=== PATIENT | male | born 1985 | race Caucasian/White ===

== ENCOUNTER 2017-09-06 09:02 | Emergency (ER) | payer OTHER ==
--- NOTE | 2017-09-06 09:16 | CPEKG ---
Heart Rate: 77 RR Interval: 779 QRSD Interval: 76 QT Interval: 360 QTC Interval: 408 QRS [place]: -12 T Wave [place]: 10 EKG Severity - ABNORMAL ECG - EKG Impression: ATRIAL FIBRILLATION, V-RATE 62-98 Electronically Signed By: Giovanna Mcgill 06-Sep-2017 15:09:20
[2017-09-06 10:05] LABS: PLATELET COUNT 227 10^3/uL (150-400)
--- NOTE | 2017-09-06 10:09 | EDPHY ---
H & P Stated Complaint: hx afib/sl lightheaded Time Seen by Provider: 09/06/17 09:15 HPI/ROS: CHIEF COMPLAINT: Atrial fibrillation HISTORY OF PRESENT ILLNESS: This is a 32-year-old male with history of paroxysmal atrial fibrillation, diagnosed approximately 10 years ago. His last episode of AFib was about 2 years ago. It is usually brought on by vomiting. Yesterday he was driving when he had the abrupt onset of a fluttering sensation in his chest. He describes it as "intense", causing him to fur puller and stop driving. This episode lasted less than a minute, after which he was aware of being in atrial fibrillation. He carries both propafenone and metoprolol. He took propafenone 150 mg at 10:00 a.m. yesterday and again at 6:30 p.m. yesterday. He took metoprolol, unknown dose, at 10:00 a.m. yesterday and again this morning. In the past he has cardioverted with these medications. Sometimes he returns to a sinus rhythm within hours but it has also taken as long as 6 days. He has never required electrical cardioversion and has not undergone an ablation procedure. He has not had chest pain or shortness of breath. He was feeling lightheaded yesterday, not today. He drinks 1 cup of coffee in the morning and plans to discontinue this habit. REVIEW OF SYSTEMS: A ten point review of systems was performed and is negative with the exception of the items mentioned in the HPI. Past medical history: 1. Paroxysmal atrial fibrillation 2. Cm AVM upper left back Past surgical history: Embolization procedures for the AVM Family history: Positive for hypertension in his father. Paternal great grandmother of a myocardial infarction. Social history: He lives outside of [facility] [place] with his . He works as an economics researcher. He does not use tobacco products or illicit drugs. He drinks alcohol on rare occasions. General Appearance: Alert. Vital signs reviewed. Eyes: Pupils equal and round, no conjunctival injection, no discharge. Anicteric. ENT, Mouth: Mucous membranes are moist, no oropharyngeal erythema or edema. Neck: No lymphadenopathy, supple. Respiratory: Lungs are clear to auscultation; no wheezes, rales, or rhonchi. Cardiovascular: Irregularly irregular; no murmur, rub, or gallop. Gastrointestinal: Abdomen is soft and nontender, no masses or organomegaly, bowel sounds normal. Skin: Warm and dry, no rashes on exposed skin, normal color. There is a birthmark overlying the posterior upper back on the left. There are 2 nontender nonmobile masses overlying this birthmark--AVM per his report. No pulsations. Back: Nontender to palpation over the thoracolumbar spine. No CVAT. Extremities: No lower extremity edema, no calf tenderness or swelling. Neurological: Alert and oriented. Moving all four extremities easily and equally. Psychiatric: Normal affect. - Personal History Current Tetanus Diphtheria and Acellular Pertussis (TDAP): Yes - Medical/Surgical History Hx Asthma: No Hx Chronic Respiratory Disease: No Hx Diabetes: No Hx Cardiac Disease: Yes Hx Renal Disease: No Hx Cirrhosis: No Hx Alcoholism: No Hx HIV/AIDS: No Hx Splenectomy or Spleen Trauma: No Other PMH: afib Constitutional: Initial Vital Signs Temperature (C) 36.9 C 09/06/17 09:04 Heart Rate 84 09/06/17 09:04 Respiratory Rate 18 09/06/17 09:04 Blood Pressure 110/76 09/06/17 09:04 O2 Sat (%) 97 09/06/17 09:04 O2 Delivery Mode Room Air Allergies/Adverse Reactions: No Known Allergies Allergy (Unverified 09/06/17 09:03) Home Medications: Medication Instructions Recorded Metoprolol Succinate 09/06/17 Metoprolol Tartrate 25 mg PO BID #60 tablet 09/06/17 Propafenone HCl 09/06/17 Medical Decision Making ED Course/Re-evaluation: 32-year-old male with known history of paroxysmal atrial fibrillation who presents in atrial fibrillation, rate controlled. I reviewed his blood work which includes CBC, chemistries, and troponin. Blood work is normal with the exception of an elevation in his blood glucose. He is asymptomatic at the time of my evaluation. I spoke with the on-call telecommunications equipment installer, Dr. Chavez Wise. The option of cardioversion was offered to the patient with the alternative being to continue his metoprolol and await chemical cardioversion. It is recommended that he take a daily aspirin. In discussion with the patient, it is decided that he will continue with metoprolol tartrate 25 mg orally twice daily. A prescription was written for this medication. Danger signs that should prompt him to return to the emergency department were reviewed with the patient and his . He is given contact numbers for [facility]. If all goes well he will follow up with his telecommunications equipment installer at home. Differential Diagnosis: I considered a differential diagnosis of atrial fibrillation that includes but is not limited to acute coronary syndrome, valvular disease, stimulants, infection, endocrine disorder. - Data Points Laboratory Results: Laboratory Results 09/06/17 08:23 09/06/17 08:23 Medications Given: Discontinued Medications Aspirin (Aspirin) 325 mg PO EDNOW ONE Stop: 09/06/17 10:20 Last Admin: 09/06/17 10:21 Dose: 325 mg Point of Care Test Results: Chemistry 09/06/17 09:24 POC Troponin I 0.00 ng/mL ng/mL (0.00-0.08) Departure - Departure Disposition: Home, Routine, Self-Care Clinical Impression: Atrial fibrillation Qualifiers: Atrial fibrillation type: paroxysmal Qualified Code(s): I48.0 - Paroxysmal atrial fibrillation Condition: Good Instructions: Metoprolol (By mouth), A-fib (Atrial Fibrillation) (ED) Additional Instructions: You should take an aspirin daily. You received one here today. You should also take the metoprolol tartrate [address] Wise recommends that you not take any more propafenone. If you are having any difficulties you should call [facility] and arrange an appointment with a telecommunications equipment installer. I spoke on the telephone today with Dr. Chavez Wise. You can tell the office staff that you were in the emergency department, the doctor Frandy was consulted, and that an appointment should be made available for you. Any of the telecommunications equipment installer would be fine for you to see. If you have a persistent very fast heart rate, if you feel faint or lightheaded , if you experience chest pain, if you feel short of breath--you should return to the emergency department. Referrals: GRACY MCPHERSON [Other] - As per Instructions Stone Wise MD [Medical Doctor] - As per Instructions Prescriptions: Metoprolol Tartrate 25 mg PO BID #60 tablet
[2017-09-06] MEDS ORDERED: ASPIRIN 325 MG TAB PO ONE (10:19)
[2017-09-06 10:30] VITALS: BP 115/79
== END 2017-09-06 10:51 | disposition home or self-care (01) ==
DX: I48.0 Paroxysmal atrial fibrillation (principal)
CPT/HCPCS: 84484-PO